=== PATIENT | female | born 1950 | race Caucasian/White ===

== ENCOUNTER → 2022-01-08 | Outpatient (CLI) | payer MEDICARE, OTHER, SELFPAY ==
--- NOTE | 2022-01-08 14:15 | CT_ITS ---
EXAM: CT ANGIOGRAPHY NECK WITHOUT AND WITH INTRAVENOUS CONTRAST CLINICAL INDICATION: CAROTID ARTERY STENOSIS TECHNIQUE: Routine carotid CT angiography protocol was performed without and with intravenous contrast. Nascet criteria using the distal ICAs for comparison were used for evaluation of stenoses. This CT exam was performed using one or more of the following dose reduction techniques: automated exposure control, adjustment of the mA and/or kV according to patient size, and/or use of iterative reconstruction technique. This report was created using [employer] report generation technology. MIP reconstructed images were created and reviewed. CONTRAST: IV 100mL Isovue-370 RADIATION DOSE: CTDIvol = 14.64 mGy, DLP = 407.90 mGy-cm COMPARISON: None. FINDINGS: VASCULATURE: RIGHT COMMON CAROTID ARTERY: Unremarkable. No occlusion or significant stenosis. No dissection. RIGHT INTERNAL CAROTID ARTERY: Unremarkable. Extracranial segment is patent with no occlusion or significant stenosis. No dissection. RIGHT EXTERNAL CAROTID ARTERY: Unremarkable. No occlusion. RIGHT VERTEBRAL ARTERY: Unremarkable. No occlusion or significant stenosis. No dissection. LEFT COMMON CAROTID ARTERY: Unremarkable. No occlusion or significant stenosis. No dissection. LEFT INTERNAL CAROTID ARTERY: There is mild atherosclerotic plaque formation of the origin of the right and left internal carotid artery with less than 50% cross sectional diameter stenosis. ALL ABOVE CRITERIA BY NASCET. No dissection. LEFT EXTERNAL CAROTID ARTERY: Unremarkable. No occlusion. LEFT VERTEBRAL ARTERY: Unremarkable. No occlusion or significant stenosis. No dissection. GREAT VESSELS OF AORTIC ARCH: Unremarkable. Normal anatomy, patent. NECK: BONES/JOINTS: There are degenerative findings of the cervical spine. SOFT TISSUES: Unremarkable. LUNG APICES: Clear. CAROTID STENOSIS REFERENCE USING NASCET CRITERIA: % ICA stenosis = (1 - narrowest ICA diameter/diameter of distal cervical ICA) x 100. Mild - <50% stenosis. Moderate - 50-69% stenosis. Severe - 70-94% stenosis. Near occlusion - 95-99% stenosis. Occluded - 100% stenosis. CT/CTA Neck W/WO Contrast IMPRESSION: There is mild atherosclerotic plaque formation of the origin of the right and left internal carotid artery with less than 50% cross sectional diameter stenosis. ALL ABOVE CRITERIA BY NASCET. Electronically Signed: Marcos Callejas MD at 19:14 EDT ,
[2022-01-08 14:16] LABS: CREATININE FINGERSTICK < 0.9 mg/dL (0.55-1.02); EGFR FINGERSTICK > 60.0000 mL/min (>60)
== END | disposition home or self-care (01) ==
LOC: CT 14:01
PROVIDERS: PCP Internal Medicine; Visit Provider Internal Medicine
DX: I65.22 Occlusion and stenosis of left carotid artery (principal)
CPT/HCPCS: 70498; Q9967

== ENCOUNTER → 2022-05-10 | Outpatient (CLI) | payer MEDICARE, OTHER, SELFPAY ==
[2022-05-10 17:34] LABS: Hematocrit 41.4 % (37-47); Hemoglobin 14.2 g/dL (12.0-15.0); Mean Corp Hgb Conc 34.3 g/dL (32-36); Mean Corpuscular Volume 93.2 fL (81-99); Mean Platelet Vol. 10.5 fl (6.2-12.0); Platelet Count 329 K/mm3 (150-450); RBC Distribution Width CV 13.1 % (11.6-14.6); RBC Distribution Width SD 44.8 fl (35.1-43.9); Red Blood Count 4.44 M/mm3 (4.2-5.4); White Blood Count 7.1 K/mm3 (4.4-11.0)
[2022-05-10 18:04] LABS: ALB/GLOB Ratio 0.8 RATIO (0.9-2.4); AST(SGOT) 17 U/L (15-37); Alanine Aminotransfer ALT/SGPT 25 U/L (13-56); Albumin, Serum 3.7 g/dL (3.2-5.0); Alkaline Phosphatase 74 U/L (45-117); Anion Gap 6 (5-15); BUN 20 mg/dL (7-18); BUN/Creat Ratio 22.1 RATIO (10-20); Calcium,Total 9.1 mg/dL (8.5-10.1); Chloride 104 mmol/L (98-107); Creatinine, Serum 0.91 mg/dL (0.55-1.02); EST Glomerular Filtration Rate 65 mL/min (>60); Est Glom Filt Rate - Afr Amer 79 mL/min (>60); Globulin 4.4 g/dL (2.2-4.2); Glucose 85 mg/dL (74-106); Potassium 3.5 mmol/L (3.5-5.1); Protein, Total 8.1 g/dL (6.4-8.2); Sodium Level 137 mmol/L (136-145)
== END | disposition home or self-care (01) ==
LOC: LAB 16:11
PROVIDERS: PCP Internal Medicine; Referring Provider Obstetrics & Gynecology Gynecology; Visit Provider Obstetrics & Gynecology Gynecology
DX: Z01.818 Encounter for other preprocedural examination (principal)
CPT/HCPCS: 36415; 80053; 85027; 86850; 86900; 86901; 93005

== ENCOUNTER 2022-05-17 15:08 | Observation (INO) | payer MEDICARE, OTHER, SELFPAY ==
[2022-05-17] VITALS (18 sets, daily range): BP systolic 59–153; BP diastolic 35–132; PULSE 64–94; RESP 14–18; TEMP 36.4–37; O2SAT 95–100; BMI 21.7
[2022-05-17] MEDS: Lactated Ringers 1,000 ML 125 ML IV ×2 (06:24→18:26)
[2022-05-17] MEDS: Lidocaine 1% /Epi 1:100 (20ml) 20 ML Vial (07:19)
[2022-05-17] MEDS: 0.9% Normal Saline (Pres. free 10 ML Vial (07:19)
--- NOTE | 2022-05-17 07:30 | HYST_PTH ---
PATIENT: ELMO HARDIN LOC: MS3 U#:[id number] AGE/SX: 71/F ROOM: [place] RE05/17/[address]: Dr. Shellie Pisano MD : 1950 BED: 1 DIS: 05/18/2022 SPEC #: [id number] RECD: 05/17/22 15:01 STATUS: PAVAN HOPSON #: [id number] ZURDO: 05/17/22 07:[address]: Shellie Pisano DEPT: SURGICAL PATHOLOGY RECD BY: Nisha Antonio ENTERED: 05/18/22 09:55 SP TYPE: HYSTERECT OTHR DR: MD Dr. She Hooker DO Tissues: Uterus, NOS Procedures: Surgery Specimen Level II Surgery Specimen Level V HEADER OPERATION: Vaginal hysterectomy with anterior and posterior repair PRE-OP DIAGNOSIS: Incomplete uterovaginal prolapse with cystocele and rectocele TISSUE SUBMITTED: Uterus and vaginal tissue MICROSCOPIC DIAGNOSIS Uterus, hysterectomy: Cervix ? Nabothian cysts and minimal chronic inflammation. Endometrium ? inactive endometrium with cystic change. Myometrium ? leiomyomas and adenomyosis. Vaginal mucosa, anterior and posterior repair: Minimal chronic inflammation. AM:samara 05/23/2022 MICROSCOPIC DESCRIPTION Slides are reviewed. GROSS DESCRIPTION Received in fixative is one container labeled with the patient's name and designated uterus and vaginal tissue. The specimen consists of a hysterectomy specimen consisting of uterus with cervix and detached pieces of mucosal tissue. The uterus with cervix weighs 33 gm and measures 7.5 x 3 x 3 cm. The serosal surface is johnson, glistening. The ectocervical mucosa is unremarkable. The external os is pinpoint in contour. The endocervical canal measures 3 cm in length and the endocervical mucosa is johnson, glistening and unremarkable. The triangular endometrial cavity measures 2.5 cm in length and 1.5 cm in width. The endometrium is johnson, glistening without any mass lesion and measures <0.1 cm in thickness. The uterine wall reveals multiple intramural and one submucosal and multiple intramural nodular masses. The largest mass is submucosa and measures 1.5 cm in diameter. Sections of these masses reveal ojhnson whorled cut surfaces without areas of hemorrhage, necrosis or cystic degeneration. Sections of one of the nodules also show focal calcified cut surfaces. The uninvolved uterine wall measures up to 1 cm in thickness. Also received are multiple detached pieces of mucosal tissue measuring in aggregate 6 x 5 x 1 cm. No mucosal lesion is identified. Sections of the uterine wall also reveal submucosal and intramural nodular masses including largest submucosal nodular mass. Medical Collector sections are submitted in nine cassettes as follows: 1 - anterior cervix, 2 - posterior cervix, 3 & 4 - anterior uterine wall, 5 & 6 - posterior uterine wall, 7 - small intramural nodular masses, 8 - nodular mass with focal area of calcification submitted after decalcification, 9 - mucosal tissue. / SJ:samara 05/18/2022 TC:1 CPT: 30532, 49889
--- NOTE | 2022-05-17 07:40 | PCM.HP.OB ---
HPI - General General Date of Admission: 05/17/22 Date of Service: 05/17/22 Chief Complaint: Feels pressure and something falling from vagina HPI Narrative ELMO HARDIN, is a 71 F who presents with the above and her evaluation found she had an incomplete uterovaginal prolapse with large cystocele and grade 1-2 rectocele. She is presenting for repair [facility] Medical History (Updated 05/17/22 @ 07:[address] hSellie Pisano MD) Alcohol use Back pain Difficulty swallowing DVT (deep venous thrombosis) Former smoker High cholesterol History of edema History of pain when walking History of steroid therapy History of ulceration Hypertension Injury of head and neck Migraine headache Post-menopausal Wears glasses Home Medications Lactobacillus acidophilus 10 billion cell capsule (Probiotic) 10,000 mmu cells PO DAILY supplement 05/10/22 [History Last Taken 05/16/22] vzkicxg-sdytmfuapdwfq-reiozyrd 250 mg-250 mg-65 mg tablet (Excedrin Extra Strength) 2 tab PO Q6H PRN Pain 05/10/22 [History Last Taken Unknown] calcium carbonate 600 mg-vitamin D3 5 mcg (200 unit) tablet 1 tab PO BID supplement 05/10/22 [History Last Taken 05/16/22] cholecalciferol (vitamin D3) 50 mcg (2,000 unit) capsule (Vitamin D3) 50 mcg PO DAILY supplement 05/10/22 [History Last Taken 05/03/22] denosumab 60 mg/mL subcutaneous syringe (Prolia) 60 mg subcut .[id number] Osteoporosis 05/10/22 [History Last Taken 05/16/22] diltiazem HCl 360 mg capsule,24 hr,extended release 360 mg PO DAILY BP 05/10/22 [History Last Taken 05/17/22 04:00] doxycycline hyclate 50 mg capsule 50 mg PO DAILY dry eye 05/10/22 [History Last Taken 05/03/22] hydrochlorothiazide 25 mg tablet 25 mg PO DAILY BP 05/10/22 [History Last Taken 05/16/22] hyoscyamine sulfate 0.125 mg tablet 0.125 mg PO PRN PRN ESOPHAGUS SPASM 05/10/22 [History Last Taken 05/16/22] omega-3 fatty acids 1,000 mg PO QODAY supplement 05/10/22 [History Last Taken 05/16/22] rosuvastatin 10 mg tablet 10 mg PO DAILY HLD 05/10/22 [History Last Taken 05/16/22] Allergy/AdvReac Type Severity Reaction Status Date / Time nabumetone [From Relafen] Allergy Hives Verified 05/17/22 05:53 no significant family history Surgical History (Updated 05/10/22 @ 13:32 by Brenda Dave) History of back surgery History of dilatation and curettage History of tonsillectomy and adenoidectomy Hx of foot surgery Hx of laparoscopy Hx of surgical procedure Social History Smoking Status: Former smoker Vital Signs Vital Signs Vital Signs: 05/17/22 06:01 05/17/22 06:04 Temperature 98.0 F Temperature Source Temporal Pulse Rate 64 Respiratory Rate 18 Respiratory Pattern Normal Blood Pressure 142/80 H Blood Pressure Mean 100 Blood Pressure Source Monitor Blood Pressure Position Sitting Pulse Ox 100 Oxygen Delivery Method Room Air Weight Weight: 123 lb Body Mass Index (BMI) 21.7 Physical Exam Const alert, oriented x3, no apparent distress and average body habitus General Appearance: cooperative HEENT normocephalic Eyes PERRL Neck full ROM General: normal visual inspection Chest inspection of chest normal Chest: symmetrical chest wall rise Resp normal respiratory effort and clear to auscultation bilaterally Effort and Inspection: able to speak in complete sentences Cardio regular rate, regular rhythm and no murmurs GI normal to inspection, nondistended, normoactive bowel sounds Rectal Exam: normal sphincter tone and other Other Details: confirms rectocele no CVA tenderness, bimanual exam normal, adnexae non-tender and no adnexal masses Narrative: vulva shows cystocele, atrophic vagina, cervix with partial descent, upper vaginal angles supported. External Female Exam: normal appearance of the urethra Speculum Exam - Vagina: vagina atrophic mucosa Bimanual Exam - Vag & Uterus: normal bimanual exam and other small uterus Pelvic Support: Cystocele: 3 Degrees, Rectocele: 2 Degrees, Vaginal Sidewall: 2 Degrees, Uterine Prolapse: 2 Degrees and Vaginal Handley: 2 Degrees Skin no rashes or lesions noted Neuro oriented x3 Labs Labs Labs: Blood Type A POSITIVE Antibody Screen NEGATIVE Hct 41.4 % (37-47) Hgb 14.2 g/dL (12.0-15.0) Assessment & Plan (1) Uterovaginal prolapse, incomplete: (2) Cystocele and rectocele with incomplete uterovaginal prolapse: (3) Postmenopausal atrophic vaginitis: PLAN: Plan Incomplete uterovaginal prolapse with Cystocele and rectocele for vaginal hysterectomy with anterior and posterior repair , cuff support, possible bilateral salpingooophorectomy
[2022-05-17] MEDS: Cefotetan 2 GM in 0.9% NS 100 ML IV (07:42)
--- NOTE | 2022-05-17 08:22 | OP.PCM_ITS ---
Report of Operation Date of Procedure: 05/17/22 Pre-Operative Diagnosis: Stress urinary incontinence, intrinsic sphincter defic iency Post-Operative Diagnosis: Same Surgery/Procedure Performed:: Mid urethral sling, cystourethroscopy with left ureteral catheterization, attempted left ureteroscopy Surgeon: Madison Tovar Type of Anesthesia: General Description of Procedure: The patient is a 71-year-old female with intrinsic sphincter deficiency and stress urinary incontinence who presents for surgical intervention in combination with prolapse repair per Dr. Crystal. Informed consent was obtained. The patient was taken to the operating room and placed on the operating room table. Anesthesia monitored the head, neck, airway, IV access and vital signs throughout the case. Once anesthesia was appropriately administered, the patient was placed into dorsal lithotomy in Trendelenburg position and was prepped and draped in usual sterile fashion. Dr. Pisano performed her portion of the procedure, the Mcgovern catheter was then removed and I inserted the cystoscope through the urethra under direct visualization into the urinary bladder. The bladder mucosa was found to be within normal limits with no evidence of injury, foreign body or hemorrhage. Bilateral ureteral orifices were visualized. The right ureteral orifice was putting out clear yellow urine. The left ureteral orifice was identified and gently an attempt was made to cannulate the orifice with a whistle-tip catheter. This did not go easily and was then changed to a Glidewire. There was still evidence of obstruction and an attempt was made at ureteroscopy. I was unable to gain access to the ureter. The patient was given intravenous methylene blue. The decision was then made to take down the left side of the repair. This was was turned over to Dr. Pisano. After taking down the left uterosacral suspension, a cystoscopy was repeated, and a 0.035 Glidewire easily passed through the left ureteral orifice without evidence of obstruction. A Pollick catheter was inserted inserted over the wire all the way to 24 cm. The wire was then removed and an irrigation was performed of the collecting system revealing blue-tinged urine. The Pollick catheter was left in situ and the cystoscope was removed. The Mcgovern catheter was placed alongside of the Pollick catheter and the bladder was drained. The mid urethra was identified and an area close to the bladder neck was isolated and injected submucosally for hydrostatic dissection and hemostatic control. A midline incision was made just distal to the bladder neck approximately 2 cm in length. Sharp and blunt dissection was performed on either side of the urethra with care being taken to avoid entrance into the urethra or the vaginal mucosa. At this time the trochars of the Altis sling were used for placement through the transobturator complexes bilaterally with care being taken to avoid entrance into the urethra, bladder or vaginal mucosa. The sling was positioned against the urethra using the tensioning suture which was then cut. The vaginal mucosa was closed with running interlocking 2-0 Vicryl. The Mcgovern catheter was then removed, leaving the Pollick catheter in place, and the cystoscope was inserted through the urethra under direct visualization into the urinary bladder. The urethra and bladder mucosa were found to be intact without evidence of injury, foreign body or mass. At this time the cystoscope was removed and the Mcgovern catheter was reinserted. The Pollick catheter was inserted into the Mcgovern and the vagina was packed with vaginal cream and packing. The patient was then awakened and taken to the recovery room in good condition. Grafts/Implants Used: Altis mid urethral sling, Pollick catheter Complications None Admit VTE Documentation VTE Present on Admission: Yes VTE Mechan Device Prophylaxis: SCD's VTE Pharm Prophylaxis ordered?: Yes
[2022-05-17] MEDS: Lactated Ringers 1,000 ML 15 ML IV (09:30)
[2022-05-17] MEDS: Estrogens,Conj. 1 Tube 1 DOSE (11:44)
--- NOTE | 2022-05-17 11:45 | OP.PCM_ITS ---
Problems Associated Problem List Diagnoses (1) Uterovaginal prolapse, incomplete: (2) Cystocele and rectocele with incomplete uterovaginal prolapse: (3) Postmenopausal atrophic vaginitis: Report of Operation Date of Procedure: 05/17/22 Pre-Operative Diagnosis: Incomplete uterovaginal prolapse with cystocele grade 3 and rectocele grade 1-2 Post-Operative Diagnosis: Same Surgery/Procedure Performed:: Vaginal hysterectomy with anterior and posterior repair and uterosacral Suspension. Description of Surgical Findings:: Very atrophic vaginal tissues and a small prolapsed uterus. At the end of the procedure the left ureter was noted not to be draining into the bladder and the left uterosacral suspension was removed and the tissue was massaged with immediate release of urine from the left ureter as noted on cystoscopy. See Dr. Tovar's case notes. Surgeon: Shellie Pisano stamp machine servicer: Michelle Palencia stamp machine servicer: Donna Type of Anesthesia: General Anesthesiologist: Genny Landaverde Special Medications: 1 and 200,000 epinephrine solution injected into the tissues. Premarin coated 2 inch gauze for vaginal packing. Specimen's removed: Uterus and vaginal epithelium Drains: Mcgovern catheter to continuous drainage Estimated Blood Loss (mL): 100 mL Description of Procedure: In the operating room general anesthesia was obtained and the patient was prepped and draped in the usual sterile fashion in the dorsolithotomy position. The bladder was emptied for 300 mL of clear urine and 10 mL of sterile milk was placed in the bladder. The cervix was grasped with a Root tenaculum and dilute epinephrine solution injected circumferentially. 10 mL was used circumscribing incision was made down to the stroma and the uterosacral ligaments were clamped cut and suture- ligated with #0 Vicryl after entering the posterior cul-de-sac. Dissection of the vagina of the cervix led to easy entry into the anterior cul-de-sac as well and after 2 more pedicles on each side it was possible to deliver the small uterus and send it for pathology. The ovaries were small and atrophic. The posterior cul-de-sac was reefed with a running lock suture of #0 Vicryl and a pursestring suture of the same was placed between the 2 uterosacrals posteriorly to close off a possible enterocele sac. A pursestring suture of #0 Monocryl was placed through the peritoneum exteriorizing all pedicles and after this with traction on the uterosacral ligaments each 1 was identified and a suture of #0 PDS placed with the aid of the Capio. One end of each suture was brought out through the posterior vagina and the rest held for later use. The anterior repair was started by injecting the anterior vagina with another 10 mL of dilute epinephrine solution and dissecting the vaginal epithelium of the cystocele. The cystocele was reduced with 2 pursestring sutures of #3-0 Vicryl and several Emely plication sutures. The Mcgovern catheter was placed before the cystocele reduction to help identify the bladder neck. Of note was that there was minimal urine in the bladder at this point after about an hour of surgery. Excess vaginal epithelium was trimmed off and the anterior vagina was closed with a running lock suture of #3-0 Vicryl. The remaining end of the PDS sutures were brought out through the anterior vagina on each side and the vaginal cuff was closed off with plwjyc-xo-itupg sutures of #0 Vicryl and then the PDS sutures were tied down to elevate the vaginal cuff. Elevation of the vaginal cuff served to reduce the rectocele significantly. The introitus remained redundant however so the posterior repair was started by injecting another 10 mL of dilute epinephrine solution in the posterior vagina and perineum, and dissecting the vagina of the posterior wall or rectocele. And evident rectovaginal fascial tear of the left side of the vagina was present and this was repaired with a running lock suture of #3-0 Vicryl and the apex of the tear also secured to the vaginal cuff. The medial aspects of the llevator ani were reapproximated using #0 Vicryl ryqvpx-gj-qcull sutures and excess vaginal epithelium was trimmed off in the posterior vagina closed with a running lock suture of #0 Vicryl. As the perineum was approached the bulbocavernosus and superficial transverse perineal muscles were reapproximated using figure of 8 sutures of #0 Vicryl and then the incision was closed with a subcuticular layer of the same and tied off in the vagina. The Urologist then came in to perform her sling procedure and I requested she is cystoscope and then showed the 2 ureters remained patent. She performed this and the right side was noted to be draining into the bladder however the left side could not drain and other procedures she performed and will describe suggest that it was obstructed. Initially some of the cystocele repair sutures were removed however this did not resolve the issue and once the level of obstruction was identified it was thought to be the left uterosacral suspension which was then removed following which patency of the left ureter was evident. She will dictate this part in more detail. The vagina was closed of anteriorly again with the 2-0 Vicryl suture however at the left uterosacral was left without a support. The cuff did not appear to be descending however. Sponge and needle counts were correct x2. Total urine output for my part of the case ~ 350ml, starting with 300 emptied at beginning of the case. Grafts/Implants Used: NA Admit VTE Documentation VTE Present on Admission: No VTE Mechan Device Prophylaxis: SCD's VTE Pharm Prophylaxis ordered?: No
[2022-05-17] MEDS: Lactated Ringers 1,000 ML 75 ML IV (12:10)
[2022-05-17] MEDS: Morphine 2 MG/ML Syringe IV (16:41)
[2022-05-17] MEDS: Ibuprofen 400 MG Tablet PO ×2 (17:35→22:45)
[2022-05-17] MEDS: Enoxaparin 30 MG/0.3 ML Syringe SC (17:36)
[2022-05-17] MEDS: Morphine 4 MG/ML Syringe IV (18:26)
[2022-05-17] MEDS: Acetaminophen 500 MG Tablet PO (20:53)
[2022-05-17] MEDS: oxyCODONE 5 MG Tablet PO (20:58)
[2022-05-18] MEDS: Ibuprofen 400 MG Tablet PO ×4 (02:21→13:25)
[2022-05-18 02:22] VITALS: BP 118/69; PULSE 85; RESP 16; TEMP 37; O2SAT 95
[2022-05-18] MEDS: oxyCODONE 5 MG Tablet PO ×3 (02:22→15:17)
[2022-05-18] MEDS: Lactated Ringers 1,000 ML 125 ML IV (02:23)
[2022-05-18 05:57] LABS: Absolute Lymphocyte Count 0.91 X10^3/uL (0.83-4.51); Absolute Neutrophil Count 9.4 X10^3/uL (2.0-7.7); Basophil# 0.01 X10^3/uL; Basophil% 0.1 % (0-1); Hematocrit 33.2 % (37-47); Hemoglobin 11.6 g/dL (12.0-15.0); Lymphocyte # 0.91 X10^3/ul (0.83-4.51); Lymphocyte % 8.4 % (19-41); Mean Corp Hgb Conc 34.9 g/dL (32-36); Mean Corpuscular Hgb 32.6 pg (27.0-32.0); Mean Corpuscular Volume 93.3 fL (81-99); Mean Platelet Vol. 10.1 fl (6.2-12.0); Monocyte# 0.53 X10^3/uL; Monocyte% 4.9 % (0-10); NRBC Flagged by Analyzer 0 % (0-5); Neutrophil # 9.36 X10^3/uL (2.7-7.7); Neutrophil % 86.3 % (47-70); Platelet Count 270 K/mm3 (150-450); RBC Distribution Width CV 12.9 % (11.6-14.6); RBC Distribution Width SD 44.1 fl (35.1-43.9); Red Blood Count 3.56 M/mm3 (4.2-5.4); White Blood Count 10.8 K/mm3 (4.4-11.0)
[2022-05-18 06:22] VITALS: BP 102/67; PULSE 64; RESP 16; TEMP 36.8; O2SAT 97
[2022-05-18 06:27] LABS: Anion Gap 8 (5-15); BUN 9 mg/dL (7-18); BUN/Creat Ratio 11.9 RATIO (10-20); Calcium,Total 8.3 mg/dL (8.5-10.1); Chloride 104 mmol/L (98-107); Creatinine, Serum 0.76 mg/dL (0.55-1.02); EST Glomerular Filtration Rate 80 mL/min (>60); Est Glom Filt Rate - Afr Amer 97 mL/min (>60); Glucose 123 mg/dL (74-106); Potassium 3.6 mmol/L (3.5-5.1); Sodium Level 139 mmol/L (136-145)
--- NOTE | 2022-05-18 07:07 | PN.OBGYN_ITS ---
Subjective Subjective Fine with good pain control this am Objective Data Objective Data Looks very well, chatty Vital Signs: Vital Signs Temp Pulse Resp BP Pulse Ox O2 Del Method O2 Flow Rate 98.2 F 64 16 102/67 97 Room Air 2 05/18/22 06:22 05/18/22 06:22 05/18/22 06:22 05/18/22 06:22 05/18/22 06:22 05/18/22 06:22 05/18/22 02:22 Oxygen Flow Rate (L/min) 2 Oxygen Delivery Method Room Air Weight: 122 lb 12.76 oz Body Mass Index (BMI) 21.7 Intake & Output: Intake and Output for Last 24 Hours 05/16/22 05/17/22 05/18/22 23:59 23:59 23:59 Intake Total 3032.08 / 3032.08 622.92 / 622.92 Output Total 980 / 1680 2975 / 2975 Balance 2052.08 / 1352.08 -2352.08 / -2352.08 Lab / Micro Data Attestation: I reviewed the patient's lab results. Result Diagrams: 05/18/22 05:05 05/18/22 05:05 Labs: Laboratory Results - last 24 hr 05/18/22 05:05: WBC 10.8, RBC 3.56 L, Hgb 11.6 L, Hct 33.2 L, MCV 93.3, MCH 32.6 H, MCHC 34.9, RDW Std Deviation 44.1 H, RDW Coeff of [place]ien[place] 12.9, Plt Count 270, MPV 10.1, Immature Gran % (Auto) 0.300, Neut % (Auto) 86.3 H, Lymph % (Auto) 8.4 L, [place] % (Auto) 4.9, Eos % (Auto) 0.0, Baso % (Auto) 0.1, Absolute Neuts (auto) 9.4 H, Absolute Lymphs (auto) 0.91, Nucleated RBC % 0 05/18/22 05:05: Sodium 139, Potassium 3.6, Chloride 104, Carbon Dioxide 27.0, Anion Gap 8, BUN 9, Creatinine 0.76, Estim Creat Clear Calc 43.30, Est GFR (MDRD) Af Amer 97, Est GFR (MDRD) Non-Af 80, BUN/Creatinine Ratio 11.9, Glucose 123 H, Calcium 8.3 L ROS ROS Narrative Had some bladder pain when outflow obstructed. No low back pain Physical Exam Const alert, oriented x3 and no apparent distress; Negative for average body habitus, no limitations, healthy appearing or well nourished General Appearance: comfortable Resp normal respiratory effort GI GI Narrative: soft, non tender no CVA tenderness Narrative: Em in place draining pink tinged urine. Extremity no calf tenderness Assessment & Plan (1) Postoperative state: PLAN: Plan Increase activity, advance diet. leg bag training. Will evlauate this pm for possible discharge. Discussed em to be removed in office Saturday.
--- NOTE | 2022-05-18 07:21 | PCM.PN.GU ---
Subjective Subjective Doing well this morning. Ready for discharge planning today. No issues overnight. Objective Data Objective Data Vital Signs: Vital Signs Temp Pulse Resp BP Pulse Ox O2 Del Method O2 Flow Rate 98.2 F 64 16 102/67 97 Room Air 2 05/18/22 06:22 05/18/22 06:22 05/18/22 06:22 05/18/22 06:22 05/18/22 06:22 05/18/22 06:22 05/18/22 02:22 Oxygen Flow Rate (L/min) 2 Oxygen Delivery Method Room Air Weight: 55.7 kg Body Mass Index (BMI) 21.7 Intake & Output: Intake and Output for Last 24 Hours 05/16/22 05/17/22 05/18/22 23:59 23:59 23:59 Intake Total 3032.08 / 3032.08 622.92 / 622.92 Output Total 980 / 1680 2975 / 2975 Balance 2052.08 / 1352.08 -2352.08 / -2352.08 Lab / Micro Data Result Diagrams: 05/18/22 05:05 05/18/22 05:05 Labs: Laboratory Results - last 24 hr 05/18/22 05:05: WBC 10.8, RBC 3.56 L, Hgb 11.6 L, Hct 33.2 L, MCV 93.3, MCH 32.6 H, MCHC 34.9, RDW Std Deviation 44.1 H, RDW Coeff of [place]ien[place] 12.9, Plt Count 270, MPV 10.1, Immature Gran % (Auto) 0.300, Neut % (Auto) 86.3 H, Lymph % (Auto) 8.4 L, [place] % (Auto) 4.9, Eos % (Auto) 0.0, Baso % (Auto) 0.1, Absolute Neuts (auto) 9.4 H, Absolute Lymphs (auto) 0.91, Nucleated RBC % 0 05/18/22 05:05: Sodium 139, Potassium 3.6, Chloride 104, Carbon Dioxide 27.0, Anion Gap 8, BUN 9, Creatinine 0.76, Estim Creat Clear Calc 43.30, Est GFR (MDRD) Af Amer 97, Est GFR (MDRD) Non-Af 80, BUN/Creatinine Ratio 11.9, Glucose 123 H, Calcium 8.3 L Physical Exam Const alert, oriented x3 and no apparent distress Narrative: urine clear in em tubing. Assessment & Plan Assessment/Plan (1) Uterovaginal prolapse, incomplete: (2) Stress incontinence: (3) Intrinsic sphincter deficiency: PLAN: Plan increase activity home with em today follow up with me in the office Saturday
--- NOTE | 2022-05-18 07:24 | PCM.DC ---
Discharge Instructions Diet Discharge Diet: No restrictions Activity Discharge Activity: May Shower May resume sexual activity in: - (when ok with ) Additional Activity Instructions:: no lifting over 5 pounds, no strenuous activity, no swimming, hot tubs or tub bathing, no sexual activity, no vacuuming, no driving for 2 weeks Dressing / Incision Call your doctor if your incision/area has: Continuous Slow Oozing, Sudden Increased Bleeding, Increased Pain/ Swelling and Foul Smelling Discharge Call your doctor if you observe: Fever of 101 or Higher, Inability to urinate and Inability to have a bowel movement Follow Up Care Please Follow Up With: Madison Tovar MD When: in the office Saturday for em catheter removal Test Results: Test results from this visit will be discussed in further detail at your follow-up appointment, if applicable. Discharge Plan Admission Admit Date/Time: 05/17/22 15:08 Attending Provider: Shellie Pisano Primary Care Provider: She Mi Consulting Providers: Madison Tovar Discharge Orders/Prescriptions Prescriptions: New nitrofurantoin macrocrystal 100 mg capsule 100 mg PO QHS Qty: 5 0RF Rx Instructions: must administer with a meal/food oxycodone-acetaminophen [oxycodone-acetaminophen] 5-325 mg tablet 2 tab PO Q8H PRN PRN (Reason: Pain) 7 Days Qty: 20 0RF Continued doxycycline hyclate 50 mg capsule 50 mg PO DAILY diltiazem HCl 360 mg capsule,extended release 24 hr 360 mg PO DAILY calcium carbonate-vitamin D3 600 mg-5 mcg (200 unit) Tablet 1 tab PO BID hyoscyamine sulfate 0.125 mg tablet 0.125 mg PO PRN PRN (Reason: ESOPHAGUS SPASM) hydrochlorothiazide 25 mg tablet 25 mg PO DAILY Excedrin Extra Strength 250-250-65 mg Tablet 2 tab PO Q6H PRN (Reason: Pain) omega-3 fatty acids Capsule 1,000 mg PO QODAY rosuvastatin 10 mg tablet 10 mg PO DAILY Label Comments: tablet cholecalciferol (vitamin D3) [Vitamin D3] 50 mcg (2,000 unit) Capsule 50 mcg PO DAILY Prolia 60 mg/mL syringe 60 mg SUBCUT .[id number] Probiotic 10 billion cell Capsule 10,000 mmu cells PO DAILY Other Ambulatory Orders: ,Urine (Routine) Timeframe: 20220510 Facility: [facility] - Location: Laboratory Ordered By: Dr. Shellie Pisano Urinalysis, Complete (Routine) Timeframe: 20220510 Facility: [facility] - Location: Laboratory Ordered By: Dr. Shellie Pisano Referrals / Follow Up: She Mi DO [Primary Care Provider] - Disposition Disposition (needs filled in before D/C Order can be placed): Home, Self Care
[2022-05-18 07:55] VITALS: RESP 18; O2SAT 98
[2022-05-18 09:55] VITALS: BP 104/56; PULSE 59; RESP 18; TEMP 37.1; O2SAT 98
[2022-05-18] MEDS: hydroCHLOROthiazide 25 MG Tablet PO (10:01)
[2022-05-18] MEDS: dilTIAZem CD 180 MG Capsule 360 MG PO (10:01)
[2022-05-18] MEDS: Enoxaparin 30 MG/0.3 ML Syringe SC (10:01)
[2022-05-18] MEDS: Magnesium Hydroxide 30 ML UDC PO (13:24)
[2022-05-18 14:37] VITALS: BP 102/53; PULSE 79; RESP 18; TEMP 36.6; O2SAT 95
[2022-05-18] MEDS: Acetaminophen 500 MG Tablet PO (15:17)
--- NOTE | 2022-05-18 15:36 | CASEMGMT ---
ОЛЕГ CM in to discuss OCHOA form with patient. RN CM explained OCHOA form, patient voiced understanding. Pt signed form and filed in chart. Pt provided with a copy of signed OCHOA form. Patient had no further questions or concerns at this time.
--- NOTE | 2022-05-18 15:53 | PCM.PN.BLA ---
Progress Note Patient seen again and reexamined. Looks comfortable. Patient Walked well with assistance. Physical Exam Const alert, oriented x3 and no apparent distress General Appearance: cooperative Resp normal respiratory effort, normal air movement and clear to auscultation bilaterally Resp Narrative: bases with fine crackles Effort and Inspection: able to speak in complete sentences Cardio regular rate and regular rhythm GI normal to inspection, nondistended, normoactive bowel sounds, soft to palpation and non-tender no CVA tenderness Narrative: Perineum - no edema or ecchymosis. Vaginal packing removed and moderately soaked with dark blood. Tolerated well. Mcgovern draining very pale pink Bladder / Kidney Exam: catheter in place Assessment & Plan Assessment/Plan (1) Postoperative state: (2) Postmenopausal atrophic vaginitis: (3) Cystocele and rectocele with incomplete uterovaginal prolapse: (4) Uterovaginal prolapse, incomplete: (5) Stress incontinence: (6) Intrinsic sphincter deficiency: PLAN: Plan Home this pm with legbag on Macrodantin.
--- NOTE | 2022-05-18 15:59 | DS.PCM_ITS ---
Providers Date of Admission: 05/17/22 Date of Discharge: 05/18/22 Primary Care Physician: DO Madison Agrawal MD Reason For Visit: VAG HYSTER ANTERIOR AND POSTERIOR REPAIR CUFF SUPP Diagnosis Discharge Diagnosis (1) Postoperative state: Status: Acute Code(s): Z98.890 - Other specified postprocedural states (2) Postmenopausal atrophic vaginitis: Status: Acute Code(s): N95.2 - Postmenopausal atrophic vaginitis (3) Cystocele and rectocele with incomplete uterovaginal prolapse: Status: Acute Code(s): N81.2 - Incomplete uterovaginal prolapse (4) Uterovaginal prolapse, incomplete: Status: Acute Code(s): N81.2 - Incomplete uterovaginal prolapse (5) Stress incontinence: Status: Acute Code(s): N39.3 - Stress incontinence (female) (male) (6) Intrinsic sphincter deficiency: Status: Acute Code(s): N36.42 - Intrinsic sphincter deficiency (ISD) Plan Home this pm with legbag on Macrodantin. Medications at Discharge Home Medications Lactobacillus acidophilus 10 billion cell capsule (Probiotic) 10,000 mmu cells PO DAILY supplement 05/10/22 pweynny-grnesnbanbrvs-[id number] 250 mg-250 mg-65 mg tablet (Excedrin Extra Strength) 2 tab PO Q6H PRN Pain 05/10/22 calcium carbonate 600 mg-vitamin D3 5 mcg (200 unit) tablet 1 tab PO BID supplement 05/10/22 cholecalciferol (vitamin D3) 50 mcg (2,000 unit) capsule (Vitamin D3) 50 mcg PO DAILY supplement 05/10/22 denosumab 60 mg/mL subcutaneous syringe (Prolia) 60 mg subcut .[id number] Osteoporosis 05/10/22 diltiazem HCl 360 mg capsule,24 hr,extended release 360 mg PO DAILY BP 05/10/22 doxycycline hyclate 50 mg capsule 50 mg PO DAILY dry eye 05/10/22 hydrochlorothiazide 25 mg tablet 25 mg PO DAILY BP 05/10/22 hyoscyamine sulfate 0.125 mg tablet 0.125 mg PO PRN PRN ESOPHAGUS SPASM 05/10/22 omega-3 fatty acids 1,000 mg PO QODAY supplement 05/10/22 rosuvastatin 10 mg tablet 10 mg PO DAILY HLD 05/10/22 nitrofurantoin macrocrystal 100 mg capsule 100 mg PO QHS #5 caps 05/18/22 oxycodone-acetaminophen 5 mg-325 mg tablet 2 tab PO Q8H PRN PRN Pain 7 days #20 tabs 05/18/22 Hospital Course Operations hysterectomy Summary of Care Provided Hospital Course: Patient had transobturator sling and left ureteral stent also placed at time of surgery. Immediate post-operative pain was uncontrolled but then settled in pm after oral narcotics. Ambulating independently, with Em to continuous drainage. Weight / BMI Weight Weight: 122 lb 12.76 oz Body Mass Index (BMI) 21.7 ABG / Lab / Microbiology Data Result Diagrams: 05/18/22 05:05 05/18/22 05:05 Laboratory: Laboratory Results - last 24 hr 05/18/22 05:05: WBC 10.8, RBC 3.56 L, Hgb 11.6 L, Hct 33.2 L, MCV 93.3, MCH 32.6 H, MCHC 34.9, RDW Std Deviation 44.1 H, RDW Coeff of [place] 12.9, Plt Count 270, MPV 10.1, Immature Gran % (Auto) 0.300, Neut % (Auto) 86.3 H, Lymph % (Auto) 8.4 L, [place] % (Auto) 4.9, Eos % (Auto) 0.0, Baso % (Auto) 0.1, Absolute Neuts (auto) 9.4 H, Absolute Lymphs (auto) 0.91, Nucleated RBC % 0 05/18/22 05:05: Sodium 139, Potassium 3.6, Chloride 104, Carbon Dioxide 27.0, Anion Gap 8, BUN 9, Creatinine 0.76, Estim Creat Clear Calc 43.30, Est GFR (MDRD) Af Amer 97, Est GFR (MDRD) Non-Af 80, BUN/Creatinine Ratio 11.9, Glucose 123 H, Calcium 8.3 L D/C Instructions Discharge Diet: No restrictions Discharge Activity: May Not Drive and May Shower Return to work on: 05/26/22 May shower in (days): 0 May resume sexual activity in: 8 weeks and - (when ok with ) Lifting Restricted to (Lbs): 10 Lifting Restrictions: weight restriction for 3 months. Additional Activity Instructions: no lifting over 5 pounds, no strenuous activity, no swimming, hot tubs or tub bathing, no sexual activity, no vacuuming, no driving for 2 weeks Call your doctor if your incision/area has: Continuous Slow Oozing, Sudden Increased Bleeding, Increased Pain/ Swelling and Foul Smelling Discharge Call your doctor if you observe: Fever of 101 or Higher, Inability to urinate, Inability to have a bowel movement and Shortness of breath Please Follow Up With: Madison Tovar MD When: in the office Saturday for em catheter removal Meaningful Use Info Meaningful Use Diagnoses (Choose all that apply): VTE VTE Anticoag overlap given w/in hospital stay or rx'd at dc?: Yes Pt receive overlap for 5 days?: No Reason overlap not ordered, prescribed, or given for 5 days: Treatment Not Indicated Discharge Plan Admission Admit Date/Time: 05/17/22 15:08 Primary Reason for Your Visit: Surgery for prolapse and mixed urine incontinence Attending Provider: Shellie Pisano Primary Care Provider: She Mi Consulting Providers: Madison Tovar Discharge Orders/Prescriptions Prescriptions: New nitrofurantoin macrocrystal 100 mg capsule 100 mg PO QHS Qty: 5 0RF Rx Instructions: must administer with a meal/food oxycodone-acetaminophen [oxycodone-acetaminophen] 5-325 mg tablet 2 tab PO Q8H PRN PRN (Reason: Pain) 7 Days Qty: 20 0RF Continued doxycycline hyclate 50 mg capsule 50 mg PO DAILY diltiazem HCl 360 mg capsule,extended release 24 hr 360 mg PO DAILY calcium carbonate-vitamin D3 600 mg-5 mcg (200 unit) Tablet 1 tab PO BID hyoscyamine sulfate 0.125 mg tablet 0.125 mg PO PRN PRN (Reason: ESOPHAGUS SPASM) hydrochlorothiazide 25 mg tablet 25 mg PO DAILY Excedrin Extra Strength 250-250-65 mg Tablet 2 tab PO Q6H PRN (Reason: Pain) omega-3 fatty acids Capsule 1,000 mg PO QODAY rosuvastatin 10 mg tablet 10 mg PO DAILY Label Comments: tablet cholecalciferol (vitamin D3) [Vitamin D3] 50 mcg (2,000 unit) Capsule 50 mcg PO DAILY Prolia 60 mg/mL syringe 60 mg SUBCUT .[id number] Probiotic 10 billion cell Capsule 10,000 mmu cells PO DAILY Other Ambulatory Orders: ,Urine (Routine) Timeframe: 20220510 Facility: [facility] - Location: Laboratory Ordered By: Dr. Shellie Pisano Urinalysis, Complete (Routine) Timeframe: 20220510 Facility: [facility] - Location: Laboratory Ordered By: Dr. Shellie Pisano Referrals / Follow Up: She Mi DO [Primary Care Provider] - Disposition Disposition (needs filled in before D/C Order can be placed): Home, Self Care
== END 2022-05-18 17:22 | disposition home or self-care (01) ==
LOC: SDC 15:22 → MS3 15:22
PROVIDERS: Urology; Admitting Provider Obstetrics & Gynecology Gynecology; PCP Internal Medicine; Referring Provider Obstetrics & Gynecology Gynecology; Visit Provider Obstetrics & Gynecology Gynecology
PROC: (CPT 58260; principal; 2022-05-17 07:10)
PROC: 0TJB8ZZ Inspection of Bladder, Via Natural or Artificial Opening Endoscopic (ICD-10-PCS; CPT 57288; 2022-05-17 07:10)
DX: N81.2 Incomplete uterovaginal prolapse (principal); N36.42 Intrinsic sphincter deficiency (ISD); N95.2 Postmenopausal atrophic vaginitis; E78.00 Pure hypercholesterolemia, unspecified; N39.46 Mixed incontinence; Z87.891 Personal history of nicotine dependence; I10 Essential (primary) hypertension; Z91.410 Personal history of adult physical and sexual abuse; N32.81 Overactive bladder; Z79.899 Other long term (current) drug therapy; Z86.718 Personal history of other venous thrombosis and embolism; N88.8 Other specified noninflammatory disorders of cervix uteri; D25.9 Leiomyoma of uterus, unspecified; N80.0 Endometriosis of uterus
CPT/HCPCS: 57288; 57260; 58260; 00942; 36415; 80048; 85025; 88302; 88307; 93005; 96361; 96365; 96366; 96372; 96375; 96376; 99218; J7120; C1758; C1769; G0378; J2405; J3490; Q9968

== ENCOUNTER → 2022-12-24 | Outpatient (CLI) | payer MEDICARE, SELFPAY ==
--- NOTE | 2022-12-24 09:30 | RAD_ITS ---
STUDY: X-RAY - ESOPHAGUS (BARIUM SWALLOW) WITH FLUOROSCOPY REASON FOR EXAM: Female, 72 years old. Dysphagia TECHNIQUE: 17 view(s) of the esophagus were obtained following swallowing of barium. FLUOROSCOPY TIME (if supplied): (36 seconds) minutes/seconds. 11.31 mGy COMPARISON: Comparison is made with prior examination June 26, 2013. FINDINGS: There is no demonstrated esophageal foreign body. There is no demonstrated stricture or mucosal abnormality. Small hiatal hernia with gastroesophageal reflux. Schatzki''s ring is seen at the gastroesophageal junction. The patient ingested a 12 mm tablet of barium without any difficulty. Normal visualized aortic arch and descending thoracic aorta. Normal visualized pulmonary parenchyma. There are diffuse degenerative changes of the visualized thoracic spine. RAD/Esophagus Dual Contrast IMPRESSION: Small sliding hiatal hernia with gastroesophageal reflux. Schatzki''s Ring at the level of the gastroesophageal junction. Electronically Signed: Brock Mcneal MD at 14:25 EDT ,
== END | disposition home or self-care (01) ==
PROVIDERS: PCP Internal Medicine; Referring Provider Internal Medicine; Visit Provider Internal Medicine
DX: R13.10 Dysphagia, unspecified (principal)
CPT/HCPCS: 74221

== ENCOUNTER → 2023-02-21 | Outpatient (CLI) | payer MEDICARE, SELFPAY ==
[2023-02-21 15:30] LABS: Absolute Lymphocyte Count 1.77 X10^3/uL (0.83-4.51); Absolute Neutrophil Count 4.9 X10^3/uL (2.0-7.7); Basophil# 0.03 X10^3/uL; Basophil% 0.4 % (0-1); Eosinophil# 0.12 X10^3/uL; Eosinophils% 1.6 % (0-5); Hematocrit 41.3 % (37-47); Hemoglobin 14.4 g/dL (12.0-15.0); Lymphocyte # 1.77 X10^3/ul (0.83-4.51); Lymphocyte % 24.3 % (19-41); Mean Corp Hgb Conc 34.9 g/dL (32-36); Mean Corpuscular Hgb 32.5 pg (27.0-32.0); Mean Corpuscular Volume 93.2 fL (81-99); Mean Platelet Vol. 9.5 fl (6.2-12.0); Monocyte# 0.47 X10^3/uL; Monocyte% 6.5 % (0-10); NRBC Flagged by Analyzer 0 % (0-5); Neutrophil # 4.88 X10^3/uL (2.7-7.7); Neutrophil % 67.1 % (47-70); Platelet Count 306 K/mm3 (150-450); RBC Distribution Width CV 13.2 % (11.6-14.6); RET-HE 34.8 pg (30-35); Red Blood Count 4.43 M/mm3 (4.2-5.4); Reticulocyte Count 1.14 % (0.5-1.5); White Blood Count 7.3 K/mm3 (4.4-11.0)
[2023-02-21 15:34] LABS: Erythrocyte Sedimentation Rate 30 mm/hr (0-30)
[2023-02-21 16:02] LABS: Vitamin B12 511 pg/mL (211-911)
[2023-02-21 16:30] LABS: Amylase 93 U/L (25-115); CRP < 2.90 mg/L (0.0-3.0); Ferritin 33 ng/mL (8-252); Iron 83 ug/dL (50-170); Iron Binding Capacity,Total 444 ug/dL (250-450); LDH 226 U/L (84-246); Lipase 54 U/L (13-75); Thyroid Stim Hormone (TSH) 1.59 uIU/mL (0.358-3.74)
[2023-02-25 18:07] LABS: Anti-Centromere B Ab <0.2 AI (0.0-0.9); Anti-Chromatin <0.2 AI (0.0-0.9); Anti-Jo <0.2 AI (0.0-0.9); Anti-Scleroderma-70 AB <0.2 AI (0.0-0.9); Anti-dsDNA Ab <1 IU/mL (0-9); Beef <0.10 kU/L (Class 0); Chocolate <0.10 kU/L (Class 0); Clam <0.10 kU/L (Class 0); Codfish <0.10 kU/L (Class 0); Corn <0.10 kU/L (Class 0); Egg, White 1.33 kU/L (Class II); Egg, Whole 0.26 kU/L (Class 0/I); Milk (Cow) <0.10 kU/L (Class 0); Peanut 0.22 kU/L (Class 0/I); Pork <0.10 kU/L (Class 0); RNP Ab <0.2 AI (0.0-0.9); SCALLOP <0.10 kU/L (Class 0); SESAME SEED 0.14 kU/L (Class 0/I); SJOGREN'S Anti-SS-A test < 0.2 AI (0.0-0.9); SJOGREN'S Anti-SS-B test < 0.2 AI (0.0-0.9); Shrimp <0.10 kU/L (Class 0); Smith Ab <0.2 AI (0.0-0.9); Soybean <0.10 kU/L (Class 0); Walnut, (Food) <0.10 kU/L (Class 0); Wheat <0.10 kU/L (Class 0)
[2023-02-26 01:07] LABS: Albumin 4.1 g/dL (2.9-4.4); Alpha-1-Globulins 0.2 g/dL (0.0-0.4); Alpha-2-Globulins 1.1 g/dL (0.4-1.0); Cytoplasmic Ab (C-ANCA) <1:20 titer (Neg:<1:20); Endomysial Antibody IgA Negative (Negative); Gamma Globulin 0.9 g/dL (0.4-1.8); Haptoglobin 235 mg/dL (42-346); Immunoglobulin A 161 mg/dL (64-422); Immunoglobulin E 74 IU/mL (6-495); Immunoglobulin G 815 mg/dL (586-1602); Immunoglobulin M 176 mg/dL (26-217); PROEL- TOTAL PROTEIN 7.6 g/dL (6.0-8.5); Perinuclear Ab (P-ANCA) <1:20 titer (Neg:<1:20); t-Transglutaminase IgA <2 U/mL (0-3)
== END | disposition home or self-care (01) ==
LOC: LAB 14:51
PROVIDERS: PCP Internal Medicine; Referring Provider Internal Medicine Gastroenterology; Visit Provider Internal Medicine Gastroenterology
DX: R13.10 Dysphagia, unspecified (principal); K59.00 Constipation, unspecified; Z98.890 Other specified postprocedural states; N39.3 Stress incontinence (female) (male)
CPT/HCPCS: 36415; 82150; 82607; 82728; 82784; 82785; 83010; 83516; 83540; 83550; 83615; 83690; 84165; 84443; 85025; 85045; 85652; 86003; 86005; 86140; 86225; 86235; 86255; 86256; 86334

== ENCOUNTER → 2023-02-27 | Outpatient (CLI) | payer MEDICARE, SELFPAY ==
--- NOTE | 2023-02-27 08:50 | RAD_ITS ---
STUDY: X-RAY - ABDOMEN/PELVIS REASON FOR EXAM: Female, 72 years old. sitz 1 TECHNIQUE: KUB COMPARISON: None. FINDINGS: Normal visualized lung bases. There is an unremarkable bowel gas pattern. There is no demonstrated free abdominal air. The visualized liver, spleen and kidneys are grossly normal in size and morphology. There are multiple Sitzmarks noted throughout the colon most of which appear to be concentrated within the proximal to mid descending colon . The lumbar spine demonstrates mild degenerative change. RAD/Abdomen Single View IMPRESSION: Multiple residual Sitzmarks noted throughout the colon. Recommend correlation with prior studies when available Electronically Signed: Guicho No MD at 17:12 EDT ,
== END | disposition home or self-care (01) ==
LOC: RAD 08:44
PROVIDERS: PCP Internal Medicine; Referring Provider Internal Medicine Gastroenterology; Visit Provider Internal Medicine Gastroenterology
DX: K59.09 Other constipation (principal)
CPT/HCPCS: 74018

== ENCOUNTER → 2023-03-01 | Outpatient (CLI) | payer MEDICARE, SELFPAY ==
--- NOTE | 2023-03-01 10:46 | RAD_ITS ---
STUDY: X-RAY - ABDOMEN/PELVIS REASON FOR EXAM: Female, 72 years old. sitz2 TECHNIQUE: Single AP view of the abdomen / pelvis. COMPARISON: Comparison is made with prior examination dated February 27, 2023. FINDINGS: There is an abundance of fecal material throughout the colon. 11 Sitzmarks are seen in the left hemicolon. The visualized liver, spleen and kidneys are grossly normal in size and morphology. Normal soft tissue structures. Normal visualized osseous structures. RAD/Abdomen Single View IMPRESSION: 11 Sitzmarks are seen in the left hemicolon. This has improved as compared to prior study. Large amount of fecal material is seen in the colon. Electronically Signed: Brock Mcneal MD at 14:49 EDT ,
== END | disposition home or self-care (01) ==
LOC: RAD 10:38
PROVIDERS: PCP Internal Medicine; Referring Provider Internal Medicine Gastroenterology; Visit Provider Internal Medicine Gastroenterology
DX: K59.09 Other constipation (principal)
CPT/HCPCS: 74018

== ENCOUNTER → 2023-08-02 | Outpatient (CLI) | payer MEDICARE, SELFPAY ==
--- NOTE | 2023-08-02 12:06 | NM_ITS ---
CLINICAL: 72-year-old female with history of clinical gastroparesis. SEMI-SOLID PHASE 99m Tc SULFUR COLLOID GASTRIC EMPTYING STUDY COMPARISON: None available FINDINGS: The patient was administered 1.0 mCi of 99m Tc sulfur colloid mixed with oatmeal and consumed per os. Image acquisitions in the anterior-posterior projections were obtained for 60 minutes. There is prompt visualization of the stomach. There is no gastroesophageal reflux identified. The T ? raw data emptying was calculated to be 40.18 minutes, (Normal: 12-56 minutes). NM/Gastric Emptying Study IMPRESSION: 1. NORMAL 99m Tc sulfur colloid semi-solid phase (oatmeal) gastric emptying imaging examination. A. There is normal and preserved semi-solid phase gastric emptying compared to normal controls. (Maurice et al, J Nucl Med Tech 38: 186, 2010). Electronically Signed: Diallo Dowling DO at 9:03 EST ,
== END | disposition home or self-care (01) ==
LOC: NM 12:05
PROVIDERS: PCP Internal Medicine; Referring Provider Internal Medicine Gastroenterology; Visit Provider Internal Medicine Gastroenterology
DX: K59.09 Other constipation (principal)
CPT/HCPCS: 78264; A9541

== ENCOUNTER → 2025-02-22 | Outpatient (CLI) | payer MEDICARE, SELFPAY | END | disposition home or self-care (01) | LOC: CT 15:33 | PROVIDERS: PCP Internal Medicine; Referring Provider Internal Medicine; Visit Provider Internal Medicine | DX: R79.89 Other specified abnormal findings of blood chemistry (principal) | CPT/HCPCS: 71275; Q9967 ==

== ENCOUNTER → 2025-02-22 | Outpatient (CLI) | payer MEDICARE, SELFPAY ==
[2025-02-22 14:29] LABS: D-Dimer Quantitative (DVT/PE) 1.16 FEU/ug/m (0.27-0.49)
[2025-02-22 15:21] LABS: Troponin T High Sensitivity 11 ng/L (<=14)
== END | disposition home or self-care (01) ==
PROVIDERS: PCP Internal Medicine; Referring Provider Internal Medicine; Visit Provider Internal Medicine
DX: R06.02 Shortness of breath (principal); R07.89 Other chest pain
CPT/HCPCS: 84484; 85379